=== PATIENT | female | born 1965 | race Caucasian/White ===

== ENCOUNTER 2024-04-22 15:41 | Emergency (ER) | payer BC, OTHER ==
[~2024-04-22] VITALS: Ht 157.5 cm; Wt 48.1 kg
[~2024-04-22 15:41] MED LIST: HYDR-4303 PO; ONDA4TAB5 PO; ZOLP5TAB2 PO
[2024-04-22 15:53] VITALS: BP 130/73; TEMP 97.6
[2024-04-22 17:37] VITALS: O2SAT 99
== END 2024-04-22 17:37 | disposition home or self-care (01) ==
LOC: ER 16:10
DX: S06.0X0A Concussion without loss of consciousness, initial encounter (principal); R42 Dizziness and giddiness; R11.0 Nausea; W22.8XXA Striking against or struck by other objects, initial encounter; Y93.89 Activity, other specified; Y92.89 Other specified places as the place of occurrence of the external cause; Y99.8 Other external cause status
CPT/HCPCS: 70450-TC; 70486-TC

== ENCOUNTER 2024-05-24 07:14 | Emergency (ER) | payer OTHER ==
[~2024-05-24] VITALS: Ht 157.5 cm; Wt 48.5 kg
[2024-05-24] MEDS ORDERED: IBUP-1955 PO (09:52)
[2024-05-24 10:06] VITALS: BP 100/70; TEMP 98.6; O2SAT 98
== END 2024-05-24 10:05 | disposition home or self-care (01) ==
LOC: ER 07:25
DX: S63.682A Other sprain of left thumb, initial encounter (principal); Z85.89 Personal history of malignant neoplasm of other organs and systems; Z60.2 Problems related to living alone; X58.XXXA Exposure to other specified factors, initial encounter; Y93.89 Activity, other specified; Y92.89 Other specified places as the place of occurrence of the external cause; Y99.8 Other external cause status
CPT/HCPCS: 73130-TC